=== PATIENT | male | born 1980 | race African-American/Black ===

== ENCOUNTER 2023-08-04 18:10 | Inpatient (IN) | payer OTHER ==
[~2023-08-04] VITALS: Ht 177.8 cm; Wt 80.4 kg
[2023-08-04 19:00] LABS: BASOPHILS % (AUTO) 1.2 % (0.0-2.0); EOSINOPHILS % (AUTO) 11.4 % (1.0-6.0); HEMATOCRIT 34.9 % (41-53); HEMOGLOBIN 10.8 g/dL (13.5-17.5); LYMPHOCYTES # (AUTO) 1.8 K/uL (1.0-4.8); LYMPHOCYTES % (AUTO) 26.8 % (22.0-44.0); MEAN CORPUSCULAR HEMOGLOBIN 26.9 pg (26.0-34.0); MEAN CORPUSCULAR HGB CONC 31.1 G/dL (31.0-37.0); MEAN CORPUSCULAR VOLUME 87 fL (80-100); MONOCYTES # (AUTO) 0.5 K/uL (0.1-1.0); MONOCYTES % (AUTO) 7.7 % (2.0-9.0); NEUTROPHILS # (AUTO) 3.6 K/uL (1.8-7.7); NEUTROPHILS % (AUTO) 52.9 % (40.0-70.0); PLATELET COUNT (AUTO) 235 K/uL (150-450); RED BLOOD CELL COUNT(AUTO) 4.03 MIL/uL (4.50-5.90); RED CELL DISTRIBUTION WIDTH 20.4 % (11.5-14.5); WHITE BLOOD COUNT (AUTO) 6.9 K/uL (4.5-11.0)
[2023-08-04 19:07] LABS: CALCIUM, TOTAL 9.2 mg/dL (8.8-10.5); CREATININE 13.52 mg/dL (0.60-1.30)
[2023-08-04 19:16] LABS: TROPONIN I-HIGH SENSITIVITY 16 ng/L (<76)
[2023-08-04] MEDS: DOCUSATE SODIUM 100 MG CAPSULE PO SCH (21:00)
[2023-08-04] MEDS: CALCIUM GLUCONATE 100 MG/ML 10 ML IVP ONE (21:25)
[2023-08-04] MEDS: DEXTROSE 50%-WATER 25 GM/50 ML SYRINGE IVP ONE (21:26)
[2023-08-04] MEDS: SODIUM BICARBONATE [ADULT] 8.4% 50 MEQ/50 ML SYRINGE IVP ONE (21:28)
[2023-08-04] MEDS: INSULIN REGULAR, HUMAN 100 UNITS/ML IVP ONE (21:28)
[2023-08-04] MEDS: SODIUM ZIRCONIUM CYCLOSILICATE 5 GM POWDER PACKET PO ONE (21:29)
[2023-08-04 23:38] LABS: CALCIUM, TOTAL 8.8 mg/dL (8.8-10.5); CREATININE 13.39 mg/dL (0.60-1.30); POTASSIUM 4.2 mmol/L (3.5-5.1)
[2023-08-05] VITALS (12 sets, daily range): BP systolic 142–175; BP diastolic 71–112; PULSE 68–98; RESP 18; TEMP 98–99
[2023-08-05] MEDS: HEPARIN SODIUM,PORCINE 5,000 UNITS/ML VIAL SQ SCH
[2023-08-05 01:00] LABS: GLUCOMETER DEV NAME(LOC) ER.7; GLUCOSE,POINT OF CARE 80 MG/DL (70-110)
[2023-08-05] MEDS: BUMETANIDE 0.25 MG/ML 4 ML VIAL IVP ONE (02:30)
[2023-08-05 06:57] LABS: BASOPHILS % (AUTO) 1.4 % (0.0-2.0); EOSINOPHILS % (AUTO) 11.1 % (1.0-6.0); HEMATOCRIT 34.3 % (41-53); HEMOGLOBIN 10.9 g/dL (13.5-17.5); LYMPHOCYTES # (AUTO) 1.6 K/uL (1.0-4.8); LYMPHOCYTES % (AUTO) 24.5 % (22.0-44.0); MEAN CORPUSCULAR HEMOGLOBIN 27.3 pg (26.0-34.0); MEAN CORPUSCULAR HGB CONC 31.9 G/dL (31.0-37.0); MEAN CORPUSCULAR VOLUME 86 fL (80-100); MONOCYTES # (AUTO) 0.7 K/uL (0.1-1.0); MONOCYTES % (AUTO) 9.8 % (2.0-9.0); NEUTROPHILS # (AUTO) 3.6 K/uL (1.8-7.7); NEUTROPHILS % (AUTO) 53.2 % (40.0-70.0); PLATELET COUNT (AUTO) 228 K/uL (150-450); RED BLOOD CELL COUNT(AUTO) 4.01 MIL/uL (4.50-5.90); RED CELL DISTRIBUTION WIDTH 20.6 % (11.5-14.5); WHITE BLOOD COUNT (AUTO) 6.7 K/uL (4.5-11.0)
[2023-08-05 07:06] LABS: CALCIUM, TOTAL 8.9 mg/dL (8.8-10.5); CREATININE 13.99 mg/dL (0.60-1.30)
[2023-08-05] MEDS: AmLODIPine BESYLATE 5 MG TABLET PO SCH (09:00)
[2023-08-05] MEDS ORDERED: SODIUM CHLORIDE 0.9% 2,000 ML ONE (10:22)
[2023-08-05] MEDS ORDERED: HEPARIN SODIUM,PORCINE 1,000 UNITS/ML VIAL IVP ONE (12:00)
[2023-08-05] MEDS: ACETAMINOPHEN 325 MG TABLET PO PRN (14:01)
[2023-08-05] MEDS: HEPARIN SODIUM,PORCINE 1,000 UNITS/ML VIAL IVCATH ONE ×2 (16:06)
[2023-08-05] MEDS: ONDANSETRON HCL 4 MG/2 ML VIAL IVP PRN (16:15)
[2023-08-05] MEDS: ACETAMINOPHEN 500 MG TABLET PO ONE (20:02)
[2023-08-05] MEDS: METOPROLOL TARTRATE 25 MG TABLET PO ONE (20:02)
[2023-08-06] MEDS: FOLIC ACID/VIT B COMPLEX AND C TABLET PO SCH (00:02)
[2023-08-06 00:16] VITALS: BP 139/83; PULSE 89; RESP 18; TEMP 98.4
[2023-08-06 05:08] VITALS: BP 144/94; PULSE 86; RESP 18; TEMP 98
[2023-08-06 06:19] LABS: TROPONIN I-HIGH SENSITIVITY 17 ng/L (<76)
[2023-08-06 08:18] VITALS: BP 155/92; PULSE 90; RESP 18; TEMP 98
[2023-08-06] MEDS: METOPROLOL SUCCINATE 25 MG ER TABLET PO SCH (08:21)
[2023-08-06] MEDS: LOSARTAN POTASSIUM 25 MG TABLET PO SCH (08:21)
[2023-08-06 12:00] VITALS: BP 138/81; PULSE 90; RESP 18; TEMP 98
[2023-08-06] MEDS: HYDROCODONE/ACETAMINOPHEN 5-325 MG TABLET PO PRN (13:53)
[2023-08-06] MEDS ORDERED: FOLI0.8T54 PO (13:56)
[2023-08-06] MEDS ORDERED: LOSA-381 PO (13:58)
[2023-08-06] MEDS ORDERED: METO25XL PO (13:59)
[2023-08-06 16:00] VITALS: BP 140/82; PULSE 89; RESP 18; TEMP 98.1
== END 2023-08-06 18:55 | DRG 291 ==
LOC: EMS 18:10 → EDH 21:13 → 5S 08-05 01:25
PROVIDERS: ADMIT Internal Medicine; ATTEND Internal Medicine
PROC: 5A1D70Z Performance of Urinary Filtration, Intermittent, Less than 6 Hours Per Day (ICD-10-PCS; principal; 2023-08-05)
DX: I11.0 Hypertensive heart disease with heart failure (principal); I50.23 Acute on chronic systolic (congestive) heart failure; N18.6 End stage renal disease; Z94.84 Stem cells transplant status; E87.5 Hyperkalemia; D64.9 Anemia, unspecified; I08.0 Rheumatic disorders of both mitral and aortic valves; E83.39 Other disorders of phosphorus metabolism; Z99.2 Dependence on renal dialysis; Z91.018 Allergy to other foods; Y92.89 Other specified places as the place of occurrence of the external cause; Z85.71 Personal history of Hodgkin lymphoma; Z92.21 Personal history of antineoplastic chemotherapy
CPT/HCPCS: 71045; 80048; 82962; 83735; 83880; 84484; 85025; 87340; 90935; 93005; 93306; 96374; 96375; 99291; G0378; J0610; J1644; J1815; J2405; J3490; J7030; Q9967; 36415-L1; 36415-TC